=== PATIENT | female | born 1990 | race Caucasian/White ===

== ENCOUNTER 2021-03-12 03:37 | Day surgery (SDC) | payer OTHER ==
[2021-03-12] MEDS ORDERED: HYDROmorphone 1 MG/ML Syringe IVPUSH STA (04:12)
[2021-03-12] MEDS ORDERED: Ondansetron 4 MG/2 ML SDV IVPUSH ONE ×2 (04:12→07:06)
[2021-03-12] MEDS ORDERED: Sodium Chloride 0.9% 1,000 ML IV SCH (04:15)
--- NOTE | 2021-03-12 04:16 | EDM.PDOC ---
ED HPI GENERAL MEDICAL PROBLEM - General Chief Complaint: Gastrointestinal Problem Stated Complaint: stomach pain vomitting sick Time Seen by Provider: 03/12/21 03:56 Source of Information: Reports: Patient, Other (Friend) History Limitations: Reports: No Limitations - History of Present Illness INITIAL COMMENTS - FREE TEXT/NARRATIVE: Ms. Suero is a very pleasant 30-year-old woman who now presents the ED stating that she developed generalized abdominal discomfort around noon yesterday, 03/11/2021. Around 20:00 last night, the pain became prominent in the right lower quadrant, and has progressively become worse. At the same time, she developed nausea, vomiting, and loose bowel movements. She describes the pain as achy, with some shooting. The pain does not radiate. No flank pain. She states that she feels better if she is standing, worse if she is supine. She states that going over bumps in the road en route to the ED were painful. No recent fever. No recent urinary symptoms. No prior similar symptoms. The patient states that she took some TUMS, which did not help. She also took some Pepto-Bismol and acetaminophen, which she vomited. The patient states that she has had vaginal spotting on and off for the past 3 weeks, therefore is unable to say when her LMP was. She last ate around 17:00 last night, but vomited it up. Here in the ED, the patient's initial BP is found to be slightly elevated at 139/100, otherwise, she is hemodynamically stable, afebrile, saturating 90% on room air. She appears to be uncomfortable while semirecumbent on the gurney, although in no acute distress. Prior to yesterday around noon, the patient denies having a recent fever, chills, sore throat, ear pain, nasal or sinus congestion, cough, dyspnea, chest pain, palpitations, nausea, vomiting, constipation, diarrhea, abdominal pain, urinary symptoms, recent weight gain or weight loss, recent bloody bowel movements or black bowel movements, recent joint aches, headaches, or rashes. The patient's PCP is Dr. Maylin Donnelly, at [facility]. Right Lower Abdomen Pain Score (Numeric/FACES): 6 - Related Data Allergies Allergy/AdvReac Type Severity Reaction Status Date / Time codeine Allergy Itching Verified 03/12/21 03:48 Home Meds: Home Meds Desvenlafaxine Succinate [Pristiq] 150 mg PO DAILY 03/12/21 [History] norethindrone ac-eth estradioL [Jesus 1.5 mg-30 Mcg Tablet] 1 tab PO DAILY 03/12/21 [History] Past Medical History Psychiatric History: Reports: Anxiety, Depression - Past Surgical History HEENT Surgical History: Reports: Oral Surgery (dental extractions), Tonsillectomy Social & Family History - Tobacco Use Tobacco Use Status *Q: Current Every Day Tobacco User Years of Tobacco use: 7 Packs/Tins Daily: 0.2 Packs/Tins Daily Comment: Down from 1 ppd Tobacco Use Comment: Started smoking at 23 yrs old - Caffeine Use Caffeine Use: Reports: Coffee - Alcohol Use Alcohol Use History: Yes Alcohol Use Frequency: Socially - Recreational Drug Use Recreational Drug Use: No - Living Situation & Occupation Living situation: Reports: Single, with Significant Other 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 ED EXAM, GI/ABD - Physical Exam Exam: See Below Exam Limited By: No Limitations General Appearance: Alert, WD/WN, Mild Distress (appears uncomfortable) Eyes: Bilateral: Normal Appearance, EOMI Ears: Normal External Exam, Hearing Grossly Normal Nose: Normal Inspection Throat/Mouth: Normal Inspection, Normal Lips, Normal Voice, No Airway Compromise Head: Atraumatic, Normocephalic Neck: Normal Inspection, Full Range of Motion Respiratory/Chest: No Respiratory Distress, Lungs Clear, Normal Breath Sounds, No Accessory Muscle Use Cardiovascular: Normal Peripheral Pulses, Regular Rate, Rhythm, No Gallop, No JVD, No Murmur, No Rub GI/Abdominal Exam: Soft, No Organomegaly, No Distention, No Abnormal Bruit, No Mass, Tender (exquisite, to the right lower quadrant, with Rovsing sign present to palpation of the left abdomen. Obturator sign present. Psoas sign absent. Heel drop sign present.), Abnormal Bowel Sounds (rare/diminished). No: Rebound Back Exam: Normal Inspection, Full Range of Motion, NT Extremities: Normal Inspection, Normal Range of Motion, Normal Capillary Refill Neurological: Alert, Oriented, Normal Cognition, No Motor/Sensory Deficits Psychiatric: Normal Affect Skin Exam: Warm, Dry, Intact, Normal Color, No Rash Course - Vital Signs Last Recorded V/S: Last Vital Signs Temp 36.0 C L 03/12/21 03:43 Pulse 81 03/12/21 03:43 Resp 16 03/12/21 03:43 BP 139/100 H 03/12/21 03:43 Pulse Ox 98 03/12/21 03:43 - Orders/Labs/Meds Orders: Active Orders 24 hr Category Date Time Status Abdomen Pelvis w Cont [CT] Stat Exams 03/12/21 04:12 Taken CORONAVIRUS COVID-19 ALISSA [MOLEC] Stat Lab 03/12/21 07:33 Ordered Ertapenem [INVanz] 1 gm Med 03/12/21 07:09 Active Sodium Chloride 0.9% [Normal Saline] 50 ml IV ONETIME Sodium Chloride 0.9% [Normal Saline] 1,000 ml Med 03/12/21 04:15 Active IV ASDIRECTED Sodium Chloride 0.9% [Saline Flush] Med 03/12/21 06:30 Active 10 ml FLUSH BOLUS Medication Orders Sodium Chloride (Normal Saline) 1,000 mls @ 150 mls/hr IV ASDIRECTED [facility] Last Admin: 03/12/21 04:21 Dose: 150 mls/hr Documented by: CRISTY Ertapenem 1 gm/ Sodium (Chloride) 50 mls @ 100 mls/hr IV ONETIME STA Stop: 03/12/21 07:38 Last Admin: 03/12/21 07:27 Dose: 100 mls/hr Documented by: ROBERT Sodium Chloride (Sodium Chloride 0.9% 10 Ml Syringe) 10 ml FLUSH BOLUS [facility] Last Admin: 03/12/21 07:03 Dose: 10 ml Documented by: HONEY Labs: Laboratory Tests 03/12/21 03/12/21 03/12/21 Range/Units 04:17 04:17 05:32 WBC 12.55 H (3.98-10.04) K/mm3 RBC 5.15 (3.98-5.22) M/mm3 Hgb 15.4 (11.2-15.7) gm/dl Hct 46.5 H (34.1-44.9) % MCV 90.3 (79.4-94.8) fl MCH 29.9 (25.6-32.2) pg MCHC 33.1 (32.2-35.5) g/dl RDW Std Deviation 46.4 H (36.4-46.3) fL Plt Count 213 (182-369) K/mm3 MPV 9.7 (9.4-12.3) fl Neutrophils % (Manual) 78 H (40-60) % Band Neutrophils % 0 (0-10) % Lymphocytes % (Manual) 14 L (20-40) % Atypical Lymphs % 0 % Monocytes % (Manual) 8 (2-10) % Eosinophils % (Manual) 0 L (0.7-5.8) % Basophils % (Manual) 0 L (0.1-1.2) Platelet Estimate Adequate RBC Morph Comment Normal Sodium 140 (136-145) mEq/L Potassium 4.2 (3.5-5.1) mEq/L Chloride 101 (98-107) mEq/L Carbon Dioxide 28 (21-32) mEq/L Anion Gap 15.2 H (5-15) BUN 12 (7-18) mg/dL Creatinine 1.1 H (0.55-1.02) mg/dL Est Cr Clr Drug Dosing TNP Estimated GFR (MDRD) 59 (>60) mL/min BUN/Creatinine Ratio 10.9 L (14-18) Glucose 115 H (70-99) mg/dL Calcium 9.5 (8.5-10.1) mg/dL Magnesium 1.9 (1.8-2.4) mg/dL Total Bilirubin 0.7 (0.2-1.0) mg/dL AST 18 (15-37) U/L ALT 19 (14-59) U/L Alkaline Phosphatase 40 L (46-116) U/L Total Protein 7.8 (6.4-8.2) g/dl Albumin 4.2 (3.4-5.0) g/dl Globulin 3.6 gm/dL Albumin/Globulin Ratio 1.2 (1-2) Urine Color Yellow (Yellow) Urine Appearance Slt cloudy H (Clear) Urine pH 7.0 (5.0-8.0) Ur Specific [place] 1.020 (1.005-1.030) Urine Protein 1+ H (Negative) Urine Glucose (UA) Negative (Negative) Urine Ketones 2+ H (Negative) Urine Occult Blood 2+ H (Negative) Urine Nitrite Negative (Negative) Urine Bilirubin 1+ H (Negative) Urine Urobilinogen 0.2 (0.2-1.0) Ur Leukocyte Esterase Negative (Negative) Urine RBC 5-10 H (0-5) /hpf Urine WBC 0-5 (0-5) /hpf Ur Squamous Epith Cells 0-5 (0-5) /hpf Urine Bacteria Moderate H (FEW) /hpf Urine Mucus Moderate H (FEW) /hpf Urine HCG, Qual (NEGATIVE) 03/12/21 Range/Units 05:32 WBC (3.98-10.04) K/mm3 RBC (3.98-5.22) M/mm3 Hgb (11.2-15.7) gm/dl Hct (34.1-44.9) % MCV (79.4-94.8) fl MCH (25.6-32.2) pg MCHC (32.2-35.5) g/dl RDW Std Deviation (36.4-46.3) fL Plt Count (182-369) K/mm3 MPV (9.4-12.3) fl Neutrophils % (Manual) (40-60) % Band Neutrophils % (0-10) % Lymphocytes % (Manual) (20-40) % Atypical Lymphs % % Monocytes % (Manual) (2-10) % Eosinophils % (Manual) (0.7-5.8) % Basophils % (Manual) (0.1-1.2) Platelet Estimate RBC Morph Comment Sodium (136-145) mEq/L Potassium (3.5-5.1) mEq/L Chloride (98-107) mEq/L Carbon Dioxide (21-32) mEq/L Anion Gap (5-15) BUN (7-18) mg/dL Creatinine (0.55-1.02) mg/dL Est Cr Clr Drug Dosing Estimated GFR (MDRD) (>60) mL/min BUN/Creatinine Ratio (14-18) Glucose (70-99) mg/dL Calcium (8.5-10.1) mg/dL Magnesium (1.8-2.4) mg/dL Total Bilirubin (0.2-1.0) mg/dL AST (15-37) U/L ALT (14-59) U/L Alkaline Phosphatase (46-116) U/L Total Protein (6.4-8.2) g/dl Albumin (3.4-5.0) g/dl Globulin gm/dL Albumin/Globulin Ratio (1-2) Urine Color (Yellow) Urine Appearance (Clear) Urine pH (5.0-8.0) Ur Specific [place] (1.005-1.030) Urine Protein (Negative) Urine Glucose (UA) (Negative) Urine Ketones (Negative) Urine Occult Blood (Negative) Urine Nitrite (Negative) Urine Bilirubin (Negative) Urine Urobilinogen (0.2-1.0) Ur Leukocyte Esterase (Negative) Urine RBC (0-5) /hpf Urine WBC (0-5) /hpf Ur Squamous Epith Cells (0-5) /hpf Urine Bacteria (FEW) /hpf Urine Mucus (FEW) /hpf Urine HCG, Qual Negative (NEGATIVE) Meds: Medications Generic Name Dose Route Start Last Admin Trade Name Freq PRN Reason Stop Dose Admin Sodium Chloride 1,000 mls @ 150 mls/hr 03/12/21 04:15 03/12/21 04:21 Normal Saline IV 150 mls/hr ASDIRECTED NAOMIE Administration Ertapenem 1 gm/ Sodium 50 mls @ 100 mls/hr 03/12/21 07:09 03/12/21 07:27 Chloride IV 03/12/21 07:38 100 mls/hr ONETIME STA Administration Sodium Chloride 10 ml 03/12/21 06:30 03/12/21 07:03 Sodium Chloride 0.9% 10 Ml Syringe FLUSH 10 ml BOLUS NAOMIE Administration Discontinued Medications Generic Name Dose Route Start Last Admin Trade Name Marilin PRN Reason Stop Dose Admin Hydromorphone HCl 1 mg 03/12/21 04:12 03/12/21 04:22 Hydromorphone 1 Mg/Ml Syringe IVPUSH 03/12/21 04:13 1 mg ONETIME STA Administration Hydromorphone HCl 1 mg 03/12/21 07:06 03/12/21 07:26 Hydromorphone 1 Mg/Ml Syringe IVPUSH 03/12/21 07:07 1 mg ONETIME ONE Administration Iopamidol 100 ml 03/12/21 06:17 03/12/21 07:03 Iopamidol 612 Mg/Ml 100 Ml Bottle IVPUSH 03/12/21 06:18 100 ml ONETIME ONE Administration Ondansetron HCl 4 mg 03/12/21 04:12 03/12/21 04:21 Ondansetron 4 Mg/2 Ml Sdv IVPUSH 03/12/21 04:13 4 mg ONETIME ONE Administration Ondansetron HCl 4 mg 03/12/21 07:06 03/12/21 07:25 Ondansetron 4 Mg/2 Ml Sdv IVPUSH 03/12/21 07:07 4 mg ONETIME ONE Administration - Re-Assessments/Exams Free Text/Narrative Re-Assessment/Exam: 03/12/21 04:14 As above, the patient developed generalized abdominal discomfort around noon yesterday, then developed progressively worsening right lower quadrant pain with nausea, vomiting, and loose bowel movements around 20:00 last evening. On examination, she has diminished bowel sounds and exquisite tenderness to the right lower quadrant, along with Rovsing sign. Obturator sign and heel drop sign are present, while a psoas sign is absent. While her her presentation could be due to a ruptured ovarian cyst, it is most consistent with acute appendicitis, therefore I have ordered a work-up that includes several blood tests, a urinalysis, a urine test, and a CT of the abdomen and pelvis with oral and IV contrast. In the meantime, the patient will be given IV Dilaudid, IV Zofran, and IV fluid. 03/12/21 07:10 The patient's CBC is remarkable for leukocytosis of 12.55, but with 0% bandemia. Her Hct is slightly elevated at 46.5, with a Hgb normal at 15.4, and the remain irma of her CBC being unremarkable. Her CMP is remarkable for an anion gap slightly elevated at 15.2, but with a bicarb normal at 28. She has slight hyperglycemia of 115, with the remainder of her CMP being unremarkable. Her magnesium level is within normal limits at 1.9. Her urinalysis is remarkable for 2+ occult blood with 5-10 RBCs, leukocyte esterase negative with 0-5 WBCs, nitrate negative with moderate bacteria, and 0- 5 squamous epithelial cells. Her urine test was negative. Preliminary review of the CT of the abdomen and pelvis appears to demonstrate periappendiceal inflammation, with no free air. Formal read per the Radiologist pending. Based on the above, I have ordered 1 g of IV Invanz. 03/12/21 07:28 CT of the abdomen and pelvis with oral and IV contrast is read by [facility] as: 1. Contrast noted within the distal esophagus consistent with gastroesophageal reflux. 2. Cholelithiasis without ancillary signs to suggest acute cholecystitis. 3. Hyperemic distended appendix measuring 9.6 mm in diameter with adjacent inflammatory fat stranding consistent with acute appendicitis. 4. No evidence of appendiceal rupture or abscess. Case discussed with Dr. Crespo at 07:26. She would like us to call the OR team in, with the intention of taking the patient to the operating room as soon as possible. She will come to the ED to evaluate the patient. Departure - Departure Time of Disposition: 07:29 Disposition: DC/Tfer to Critical Access [facility] Condition: Good Clinical Impression: Acute appendicitis - Discharge Information *PRESCRIPTION DRUG MONITORING PROGRAM REVIEWED*: Not Applicable *COPY OF PRESCRIPTION DRUG MONITORING REPORT IN PATIENT WILLIAM: Not Applicable Referrals: Maylin Donnelly MD [Primary Care Provider] - Forms: ED Department Discharge Sepsis Event Note (ED) - Evaluation Sepsis Screening Result: No Definite Risk - Focused Exam Vital Signs: Vital Signs Temp Pulse Resp BP Pulse Ox 03/12/21 03:43 36.0 C L 81 16 139/100 H 98 - My Orders Last 24 Hours: My Active Orders 03/12/21 04:12 Abdomen Pelvis w Cont [CT] Stat 03/12/21 04:15 Sodium Chloride 0.9% [Normal Saline] 1,000 ml IV ASDIRECTED 03/12/21 06:30 Sodium Chloride 0.9% [Saline Flush] 10 ml FLUSH BOLUS 03/12/21 07:09 Ertapenem [INVanz] 1 gm Sodium Chloride 0.9% [Normal Saline] 50 ml IV ONETIME 03/12/21 07:33 CORONAVIRUS COVID-19 ALISSA [MOLEC] Stat - Assessment/Plan Last 24 Hours: My Active Orders 03/12/21 04:12 Abdomen Pelvis w Cont [CT] Stat 03/12/21 04:15 Sodium Chloride 0.9% [Normal Saline] 1,000 ml IV ASDIRECTED 03/12/21 06:30 Sodium Chloride 0.9% [Saline Flush] 10 ml FLUSH BOLUS 03/12/21 07:09 Ertapenem [INVanz] 1 gm Sodium Chloride 0.9% [Normal Saline] 50 ml IV ONETIME 03/12/21 07:33 CORONAVIRUS COVID-19 ALISSA [MOLEC] Stat
[2021-03-12] MEDS ORDERED: Iopamidol 612 MG/ML 100 ML Bottle IVPUSH ONE (06:17)
[2021-03-12] MEDS ORDERED: Sodium Chloride 0.9% 10 ML Syringe FLUSH SCH (06:30)
[2021-03-12] MEDS ORDERED: HYDROmorphone 1 MG/ML Syringe IVPUSH ONE (07:06)
[2021-03-12] MEDS ORDERED: Ertapenem 1 GM in Sodium Chloride 0.9% 50 ML IV STA (07:09)
--- NOTE | 2021-03-12 08:15 | PCM.PREANE ---
Preanesthetic Assessment - Procedure Proposed Procedure: laparoscopic appendectomy - Anesthesia/Transfusion/Family Hx Anesthesia History: Prior Anesthesia Reaction (bleeding tonsils to rapid response) Family History of Anesthesia Reaction: No Transfusion History: No Prior Transfusion(s) - Review of Systems General: Fatigue, Malaise Pulmonary: No Symptoms Cardiovascular: No Symptoms Gastrointestinal: Abdominal Pain, Nausea Neurological: No Symptoms Other: Reports: None - Physical Assessment NPO Status Date: 03/11/21 NPO Status Time: 17:00 Vital Signs: Last Vital Signs Temp 36.0 C L 03/12/21 03:43 Pulse 81 03/12/21 03:43 Resp 16 03/12/21 03:43 BP 139/100 H 03/12/21 03:43 Pulse Ox 98 03/12/21 03:43 Weight: 85.502 kg ASA Class: 2 Mental Status: Alert & Oriented x3 Airway Class: Mallampati = 1 Dentition: Reports: Normal Dentition Thyro-Mental Finger Breadths: 3 Mouth Opening Finger Breadths: 3 ROM/Head Extension: Full Lungs: Clear to Auscultation, Normal Respiratory Effort Cardiovascular: Regular Rate, Regular Rhythm - Lab Values: Laboratory Last Values WBC 12.55 K/mm3 (3.98-10.04) H 03/12/21 04:17 RBC 5.15 M/mm3 (3.98-5.22) 03/12/21 04:17 Hgb 15.4 gm/dl (11.2-15.7) 03/12/21 04:17 Hct 46.5 % (34.1-44.9) H 03/12/21 04:17 MCV 90.3 fl (79.4-94.8) 03/12/21 04:17 MCH 29.9 pg (25.6-32.2) 03/12/21 04:17 MCHC 33.1 g/dl (32.2-35.5) 03/12/21 04:17 RDW Std Deviation 46.4 fL (36.4-46.3) H 03/12/21 04:17 Plt Count 213 K/mm3 (182-369) 03/12/21 04:17 MPV 9.7 fl (9.4-12.3) 03/12/21 04:17 Neutrophils % (Manual) 78 % (40-60) H 03/12/21 04:17 Band Neutrophils % 0 % (0-10) 03/12/21 04:17 Lymphocytes % (Manual) 14 % (20-40) L 03/12/21 04:17 Atypical Lymphs % 0 % 03/12/21 04:17 Monocytes % (Manual) 8 % (2-10) 03/12/21 04:17 Eosinophils % (Manual) 0 % (0.7-5.8) L 03/12/21 04:17 Basophils % (Manual) 0 (0.1-1.2) L 03/12/21 04:17 Platelet Estimate Adequate 03/12/21 04:17 RBC Morph Comment Normal 03/12/21 04:17 Sodium 140 mEq/L (136-145) 03/12/21 04:17 Potassium 4.2 mEq/L (3.5-5.1) 03/12/21 04:17 Chloride 101 mEq/L (98-107) 03/12/21 04:17 Carbon Dioxide 28 mEq/L (21-32) 03/12/21 04:17 Anion Gap 15.2 (5-15) H 03/12/21 04:17 BUN 12 mg/dL (7-18) 03/12/21 04:17 Creatinine 1.1 mg/dL (0.55-1.02) H 03/12/21 04:17 Est Cr Clr Drug Dosing TNP 03/12/21 04:17 Estimated GFR (MDRD) 59 mL/min (>60) 03/12/21 04:17 BUN/Creatinine Ratio 10.9 (14-18) L 03/12/21 04:17 Glucose 115 mg/dL (70-99) H 03/12/21 04:17 Calcium 9.5 mg/dL (8.5-10.1) 03/12/21 04:17 Magnesium 1.9 mg/dL (1.8-2.4) 03/12/21 04:17 Total Bilirubin 0.7 mg/dL (0.2-1.0) 03/12/21 04:17 AST 18 U/L (15-37) 03/12/21 04:17 ALT 19 U/L (14-59) 03/12/21 04:17 Alkaline Phosphatase 40 U/L (46-116) L 03/12/21 04:17 Total Protein 7.8 g/dl (6.4-8.2) 03/12/21 04:17 Albumin 4.2 g/dl (3.4-5.0) 03/12/21 04:17 Globulin 3.6 gm/dL 03/12/21 04:17 Albumin/Globulin Ratio 1.2 (1-2) 03/12/21 04:17 Urine Color Yellow (Yellow) 03/12/21 05:32 Urine Appearance Slt cloudy (Clear) H 03/12/21 05:32 Urine pH 7.0 (5.0-8.0) 03/12/21 05:32 Ur Specific [place] 1.020 (1.005-1.030) 03/12/21 05:32 Urine Protein 1+ (Negative) H 03/12/21 05:32 Urine Glucose (UA) Negative (Negative) 03/12/21 05:32 Urine Ketones 2+ (Negative) H 03/12/21 05:32 Urine Occult Blood 2+ (Negative) H 03/12/21 05:32 Urine Nitrite Negative (Negative) 03/12/21 05:32 Urine Bilirubin 1+ (Negative) H 03/12/21 05:32 Urine Urobilinogen 0.2 (0.2-1.0) 03/12/21 05:32 Ur Leukocyte Esterase Negative (Negative) 03/12/21 05:32 Urine RBC 5-10 /hpf (0-5) H 03/12/21 05:32 Urine WBC 0-5 /hpf (0-5) 03/12/21 05:32 Ur Squamous Epith Cells 0-5 /hpf (0-5) 03/12/21 05:32 Urine Bacteria Moderate /hpf (FEW) H 03/12/21 05:32 Urine Mucus Moderate /hpf (FEW) H 03/12/21 05:32 Urine HCG, Qual Negative (NEGATIVE) 03/12/21 05:32 - Allergies Allergies/Adverse Reactions: Allergies Allergy/AdvReac Type Severity Reaction Status Date / Time codeine Allergy Itching Verified 03/12/21 03:48 - Anesthesia Plan Pre-Op Medication Ordered: None - Acknowledgements Anesthesia Type Planned: General Anesthesia Pt an Appropriate Candidate for the Planned Anesthesia: Yes Alternatives and Risks of Anesthesia Discussed w Pt/Guardian: Yes Pt/Guardian Understands and Agrees with Anesthesia Plan: Yes PreAnesthesia Questionnaire Gastrointestinal History: Reports: GERD Psychiatric History: Reports: Anxiety, Depression - Past Surgical History HEENT Surgical History: Reports: Oral Surgery (dental extractions), Tonsillectomy - SUBSTANCE USE Tobacco Use Status *Q: Current Every Day Tobacco User Tobacco Use Within Last Twelve Months: Cigarettes Second Hand Smoke Exposure: No Days Per Week of Alcohol Use: 1 Number of Drinks Per Day: 1 Total Drinks Per Week: 1 Recreational Drug Use History: No - HOME MEDS Home Medications: Home Meds Desvenlafaxine Succinate [Pristiq] 150 mg PO DAILY 03/12/21 [History] norethindrone ac-eth estradioL [Jesus 1.5 mg-30 Mcg Tablet] 1 tab PO DAILY 03/12/21 [History] - CURRENT (IN HOUSE) MEDS Current Meds: Current Medications Sodium Chloride (Normal Saline) 1,000 mls @ 150 mls/hr IV ASDIRECTED [facility] Last Admin: 03/12/21 04:21 Dose: 150 mls/hr Documented by: Sodium Chloride (Sodium Chloride 0.9% 10 Ml Syringe) 10 ml FLUSH BOLUS [facility] Last Admin: 03/12/21 07:03 Dose: 10 ml Documented by: Discontinued Medications Bupivacaine HCl/Epinephrine Bitart (Bupivacaine 0.5%/Epinephrine 1:200,000 50 Ml Mdv) Confirm Administered Dose 50 ml .ROUTE .STK-MED ONE Stop: 03/12/21 08:02 Hydromorphone HCl (Hydromorphone 1 Mg/Ml Syringe) 1 mg IVPUSH ONETIME STA Stop: 03/12/21 04:13 Last Admin: 03/12/21 04:22 Dose: 1 mg Documented by: Hydromorphone HCl (Hydromorphone 1 Mg/Ml Syringe) 1 mg IVPUSH ONETIME ONE Stop: 03/12/21 07:07 Last Admin: 03/12/21 07:26 Dose: 1 mg Documented by: Ertapenem 1 gm/ Sodium (Chloride) 50 mls @ 100 mls/hr IV ONETIME STA Stop: 03/12/21 07:38 Last Admin: 03/12/21 07:27 Dose: 100 mls/hr Documented by: Iopamidol (Iopamidol 612 Mg/Ml 100 Ml Bottle) 100 ml IVPUSH ONETIME ONE Stop: 03/12/21 06:18 Last Admin: 03/12/21 07:03 Dose: 100 ml Documented by: Lidocaine/Epinephrine (Lidocaine 1% With Epinephrine 1:100,000 10 Ml Mdv) Confirm Administered Dose 40 ml .ROUTE .STK-MED ONE Stop: 03/12/21 08:02 Ondansetron HCl (Ondansetron 4 Mg/2 Ml Sdv) 4 mg IVPUSH ONETIME ONE Stop: 03/12/21 04:13 Last Admin: 03/12/21 04:21 Dose: 4 mg Documented by: Ondansetron HCl (Ondansetron 4 Mg/2 Ml Sdv) 4 mg IVPUSH ONETIME ONE Stop: 03/12/21 07:07 Last Admin: 03/12/21 07:25 Dose: 4 mg Documented by:
[2021-03-12] MEDS ORDERED: Rocuronium 50 MG/5 ML Vial ONE (08:30)
[2021-03-12] MEDS ORDERED: Ondansetron 4 MG/2 ML SDV ONE (08:30)
[2021-03-12] MEDS ORDERED: Lidocaine 1% 4 ML ONE (08:30)
[2021-03-12] MEDS ORDERED: fentaNYL 250 MCG/5 ML SDV ONE (08:30)
[2021-03-12] MEDS ORDERED: Midazolam 1 MG/ML 2 ML SDV ONE (08:30)
[2021-03-12] MEDS ORDERED: Propofol 200 MG/20 ML SDV ONE (08:30)
[2021-03-12] MEDS ORDERED: Lactated Ringers 1,000 ML ONE ×2 (08:40)
--- NOTE | 2021-03-12 08:55 | PCM.HP.2 ---
H&P History of Present Illness - General Date of Service: 03/12/21 Admit Problem/Dx: Admission Diagnosis/Problem Admission Diagnosis/Problem Acute appendicitis Source of Information: Patient, Provider History Limitations: Reports: No Limitations - History of Present Illness Initial Comments - Free Text/Narative: The patient is a 30 y/o lady who presents with a 2 day history of abdominal pain. She started experiencing generalized abdominal pain yesterday, and it localized to the RLQ. After settling in the RLQ, she started to have nausea and vomiting accompanied by diarrhea. She denies any hematochezia or melena. She had subjective fever/chills after the onset of the RLQ pain. Upon arrival to the ED, she had lab work and CT abdomen/pelvis completed. This was significant for WBC 12.55K and left shift, and findings of dilated appendix with appendiceal fat stranding on the CT scan. Right Lower Abdomen Pain Score (Numeric/FACES): 6 - Related Data Allergies/Adverse Reactions: Allergies Allergy/AdvReac Type Severity Reaction Status Date / Time codeine Allergy Itching Verified 03/12/21 03:48 Home Medications: Home Meds Desvenlafaxine Succinate [Pristiq] 150 mg PO DAILY 03/12/21 [History] norethindrone ac-eth estradioL [Jesus 1.5 mg-30 Mcg Tablet] 1 tab PO DAILY 03/12/21 [History] Past Medical History Gastrointestinal History: Reports: GERD Psychiatric History: Reports: Anxiety, Depression - Past Surgical History HEENT Surgical History: Reports: Oral Surgery (dental extractions with bleeding complication), Tonsillectomy (with bleeding complication) Social & Family History - Family History Cardiac: Reports: Hypertension GI: Reports: Inflammatory Bowel Disease (ulcerative colitis) Neurological: Reports: CVA Psychiatric: Reports: Anxiety Oncologic: Reports: Breast, Skin - Tobacco Use Tobacco Use Status *Q: Current Every Day Tobacco User Years of Tobacco use: 7 Packs/Tins Daily: 0.2 Tobacco Use Comment: Started smoking at 23 yrs old Second Hand Smoke Exposure: No - Caffeine Use Caffeine Use: Reports: Coffee - Alcohol Use Days Per Week of Alcohol Use: 1 Number of Drinks Per Day: 1 Total Drinks Per Week: 1 - Recreational Drug Use Recreational Drug Use: No - Living Situation & Occupation Living situation: Reports: Single, with Significant Other 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) H&P Review of Systems - Review of Systems: Review Of Systems: See Below General: Reports: Fever (subjective), Chills HEENT: Reports: Sinus Congestion (after vomiting), Other (loss of smell since COVID 9mo ago) Pulmonary: Reports: No Symptoms Cardiovascular: Reports: No Symptoms Gastrointestinal: Reports: Abdominal Pain, Diarrhea, Nausea, Vomiting Genitourinary: Reports: No Symptoms Musculoskeletal: Reports: No Symptoms Skin: Reports: No Symptoms Hematologic/Lymphatic: Reports: Other (bleeding after surgery) Exam - Exam Exam: See Below - Vital Signs Vital Signs: Last Vital Signs Temp 36.0 C L 03/12/21 03:43 Pulse 81 03/12/21 03:43 Resp 16 03/12/21 03:43 BP 139/100 H 03/12/21 03:43 Pulse Ox 98 03/12/21 03:43 Weight: 85.502 kg - Exam Quality Assessment: No: Supplemental Oxygen General: Alert, Oriented HEENT: Conjunctiva Clear, EOMI Neck: Supple Lungs: Normal Respiratory Effort Cardiovascular: Regular Rate, Regular Rhythm GI/Abdominal Exam: Soft, No Distention, Tender (in RLQ). No: Rebound Extremities: Normal Inspection, No Pedal Edema Peripheral Pulses: 2+: Dorsalis Pedis (L), Dorsalis Pedis (R) Skin: Warm, Dry, Intact Neurological: Cranial Nerves Intact Neuro Extensive - Mental Status: Oriented x3, Normal Mood/Affect - Patient Data Lab Results Last 24 hrs: Laboratory Results - last 24 hr 03/12/21 03/12/21 03/12/21 Range/Units 04:17 04:17 05:32 WBC 12.55 H (3.98-10.04) K/mm3 RBC 5.15 (3.98-5.22) M/mm3 Hgb 15.4 (11.2-15.7) gm/dl Hct 46.5 H (34.1-44.9) % MCV 90.3 (79.4-94.8) fl MCH 29.9 (25.6-32.2) pg MCHC 33.1 (32.2-35.5) g/dl RDW Std Deviation 46.4 H (36.4-46.3) fL Plt Count 213 (182-369) K/mm3 MPV 9.7 (9.4-12.3) fl Neutrophils % (Manual) 78 H (40-60) % Band Neutrophils % 0 (0-10) % Lymphocytes % (Manual) 14 L (20-40) % Atypical Lymphs % 0 % Monocytes % (Manual) 8 (2-10) % Eosinophils % (Manual) 0 L (0.7-5.8) % Basophils % (Manual) 0 L (0.1-1.2) Platelet Estimate Adequate RBC Morph Comment Normal Sodium 140 (136-145) mEq/L Potassium 4.2 (3.5-5.1) mEq/L Chloride 101 (98-107) mEq/L Carbon Dioxide 28 (21-32) mEq/L Anion Gap 15.2 H (5-15) BUN 12 (7-18) mg/dL Creatinine 1.1 H (0.55-1.02) mg/dL Est Cr Clr Drug Dosing TNP Estimated GFR (MDRD) 59 (>60) mL/min BUN/Creatinine Ratio 10.9 L (14-18) Glucose 115 H (70-99) mg/dL Calcium 9.5 (8.5-10.1) mg/dL Magnesium 1.9 (1.8-2.4) mg/dL Total Bilirubin 0.7 (0.2-1.0) mg/dL AST 18 (15-37) U/L ALT 19 (14-59) U/L Alkaline Phosphatase 40 L (46-116) U/L Total Protein 7.8 (6.4-8.2) g/dl Albumin 4.2 (3.4-5.0) g/dl Globulin 3.6 gm/dL Albumin/Globulin Ratio 1.2 (1-2) Urine Color Yellow (Yellow) Urine Appearance Slt cloudy H (Clear) Urine pH 7.0 (5.0-8.0) Ur Specific [place] 1.020 (1.005-1.030) Urine Protein 1+ H (Negative) Urine Glucose (UA) Negative (Negative) Urine Ketones 2+ H (Negative) Urine Occult Blood 2+ H (Negative) Urine Nitrite Negative (Negative) Urine Bilirubin 1+ H (Negative) Urine Urobilinogen 0.2 (0.2-1.0) Ur Leukocyte Esterase Negative (Negative) Urine RBC 5-10 H (0-5) /hpf Urine WBC 0-5 (0-5) /hpf Ur Squamous Epith Cells 0-5 (0-5) /hpf Urine Bacteria Moderate H (FEW) /hpf Urine Mucus Moderate H (FEW) /hpf Urine HCG, Qual (NEGATIVE) SARS-CoV-2 RNA (ALISSA) (NEGATIVE) 03/12/21 03/12/21 Range/Units 05:32 07:30 WBC (3.98-10.04) K/mm3 RBC (3.98-5.22) M/mm3 Hgb (11.2-15.7) gm/dl Hct (34.1-44.9) % MCV (79.4-94.8) fl MCH (25.6-32.2) pg MCHC (32.2-35.5) g/dl RDW Std Deviation (36.4-46.3) fL Plt Count (182-369) K/mm3 MPV (9.4-12.3) fl Neutrophils % (Manual) (40-60) % Band Neutrophils % (0-10) % Lymphocytes % (Manual) (20-40) % Atypical Lymphs % % Monocytes % (Manual) (2-10) % Eosinophils % (Manual) (0.7-5.8) % Basophils % (Manual) (0.1-1.2) Platelet Estimate RBC Morph Comment Sodium (136-145) mEq/L Potassium (3.5-5.1) mEq/L Chloride (98-107) mEq/L Carbon Dioxide (21-32) mEq/L Anion Gap (5-15) BUN (7-18) mg/dL Creatinine (0.55-1.02) mg/dL Est Cr Clr Drug Dosing Estimated GFR (MDRD) (>60) mL/min BUN/Creatinine Ratio (14-18) Glucose (70-99) mg/dL Calcium (8.5-10.1) mg/dL Magnesium (1.8-2.4) mg/dL Total Bilirubin (0.2-1.0) mg/dL AST (15-37) U/L ALT (14-59) U/L Alkaline Phosphatase (46-116) U/L Total Protein (6.4-8.2) g/dl Albumin (3.4-5.0) g/dl Globulin gm/dL Albumin/Globulin Ratio (1-2) Urine Color (Yellow) Urine Appearance (Clear) Urine pH (5.0-8.0) Ur Specific [place] (1.005-1.030) Urine Protein (Negative) Urine Glucose (UA) (Negative) Urine Ketones (Negative) Urine Occult Blood (Negative) Urine Nitrite (Negative) Urine Bilirubin (Negative) Urine Urobilinogen (0.2-1.0) Ur Leukocyte Esterase (Negative) Urine RBC (0-5) /hpf Urine WBC (0-5) /hpf Ur Squamous Epith Cells (0-5) /hpf Urine Bacteria (FEW) /hpf Urine Mucus (FEW) /hpf Urine HCG, Qual Negative (NEGATIVE) SARS-CoV-2 RNA (ALISSA) Negative (NEGATIVE) Result Diagrams: 03/12/21 04:17 03/12/21 04:17 Sepsis Event Note - Evaluation Sepsis Screening Result: No Definite Risk - Focused Exam Vital Signs: Vital Signs Temp Pulse Resp BP Pulse Ox 03/12/21 03:43 36.0 C L 81 16 139/100 H 98 *Q Meaningful Use (ADM) - VTE Risk Assess *Q Each Risk Factor Represents 1 Point: Minor Surgery Planned, Obesity ( BMI > 25 kg/m2) Total Score 1 Point Risk Factors: 2 - Problem List (1) Acute appendicitis SNOMED Code(s): 72045986 ICD Code: K35.80 - UNSPECIFIED ACUTE APPENDICITIS Status: Acute Current Visit: Yes Problem List Initiated/Reviewed/Updated: Yes Orders Last 24hrs: Active Orders 24 hr Category Date Time Status Patient Status [ADT] Routine ADT 03/12/21 07:34 Active Abdomen Pelvis w Cont [CT] Stat Exams 03/12/21 04:12 Taken Sodium Chloride 0.9% [Normal Saline] 1,000 ml Med 03/12/21 04:15 Active IV ASDIRECTED Sodium Chloride 0.9% [Saline Flush] Med 03/12/21 06:30 Active 10 ml FLUSH BOLUS Schedule Procedure [COMM] Stat Oth 03/12/21 07:34 Ordered Medication Orders Sodium Chloride (Normal Saline) 1,000 mls @ 150 mls/hr IV ASDIRECTED NAOMIE Last Admin: 03/12/21 04:21 Dose: 150 mls/hr Documented by: CRISTY Sodium Chloride (Sodium Chloride 0.9% 10 Ml Syringe) 10 ml FLUSH BOLUS NAOMIE Last Admin: 03/12/21 07:03 Dose: 10 ml Documented by: HONEY Assessment/Plan Comment:: 30 y/o lady with acute appendicitis - plan for laparoscopic appendectomy, possible open. Discussed risks of bleeding, infection, and intra-abdominal injury. Also discussed possible need for blood transfusion because of her bleeding history. Her written consent was obtained. - NPO - IVF resuscitation - IV abx per ED - will assess intraoperative findings for need of inpatient stay Kira Reyez MD General surgery - Mortality Measure Prognosis:: Good
[2021-03-12] MEDS ORDERED: Dexamethasone 4 MG/ML 5 ML MDV ONE (09:02)
[2021-03-12] MEDS: Lidocaine 1% with EPINEPHrine 1:100,000 10 ML MDV ONE ×2 (09:14→09:32)
[2021-03-12] MEDS: Bupivacaine 0.5%/EPINEPHrine 1:200,000 50 ML MDV ONE ×2 (09:14→09:32)
[2021-03-12] MEDS ORDERED: Ketorolac 30 MG/ML SDV ONE (09:30)
[2021-03-12] MEDS ORDERED: fentaNYL 100 MCG/2 ML SDV ONE (09:32)
--- NOTE | 2021-03-12 09:51 | PCM.OPNOTE ---
- General Post-Op/Procedure Note Date of Surgery/Procedure: 03/12/21 Operative Procedure(s): Laparoscopic appendectomy Findings: acute appendicitis, not perforated Pre Op Diagnosis: acute appendicitis Post-Op Diagnosis: same Anesthesia Technique: General ET Tube, Local Primary Surgeon: Kira Reyez Anesthesia Provider: Aleksandar Casas Pathology: appendix Fluid Replacement, Intraop: 1,800 Output, Urine Amount: 0 EBL in mLs: 5 Complications: none apparent Condition: Good
--- NOTE | 2021-03-12 09:56 | PCM.PRNOTE ---
- Free Text/Narrative Note: Operative Report Date of surgery: March 12, 2021 Preoperative diagnosis: acute appendicitis. Postoperative diagnosis: same Procedure performed: laparoscopic appendectomy Surgeon: Dr. Kira Reyez Anesthesia: General Search Engine Opt[employer] Consultant: Aleksandar Casas CRNA Estimated blood loss: 5 mL IV fluids: 1800 mL Urine output: 0 Drains and lines: None Findings: Acute appendicitis, not perforated Pathology: Appendix Indications for procedure: The patient is a 30-year-old lady who presented to the emergency department with acute onset of right lower quadrant abdominal pain. She had evaluation no significant for acute appendicitis. She was consented for laparoscopic appendectomy, possible open after discussion of risks including bleeding, possible intra-abdominal injury, abscess formation, and conversion to open. Her written consent was obtained. Description of procedure: The patient was taken back to the operating room and placed in supine position on the operating table. SCD boots were in place and functional prior to the start of the procedure. Preoperative antibiotics were administered in the emergency department. The patient had successful induction of general anesthesia and was intubated without difficulty. Pt was then prepped and draped in standard surgical fashion and a timeout was performed. We began by making a 15 mm incision in the infraumbilical skin and deepened down to level of the fascia which was then grasped and incised sharply. We entered the peritoneum and then placed stay sutures of 0 Vicryl on the fascial edges. A 12 mm Miller port was then placed into the umbilicus and the balloon was inflated. The abdomen was insufflated to 15 mmHg a 5 mm camera was inserted. A TAP block was performed using mixed 1% lidocaine with epinephrine and 0.5% bupivacaine with epinephrine. We then proceeded to place a 5 mm port under direct visualization in the suprapubic midline and an additional 5mm port in the left lower quadrant. The patient was then positioned in Trendelenburg with right side elevated and we proceeded to mobilize the appendix. The appendix was inflamed and edematous with surrounding adherent omentum. The appendix was then grasped and with blunt dissection was brought into the surgical field. The mesoappendix dissected from the appendix. The appendix was then taken with a tissue staple load. The mesoappendix was then taken with the vascular staple load. The specimen was in place in the Endo Catch bag. We then inspected and removed any blood in the area. There was no active bleeding at the end of this case. The abdomen was then desufflated and the umbilical fascia closed with 0 Vicryl sutures and the stay sutures were tied, effectively closing the umbilical port site. The skin was then reapproximated at all port sites using a 4-0 Monocryl subcutaneous stitch and covered with Dermabond surgical glue. The patient tolerated the procedure. She was extubated and transported to the PACU in stable condition. All sponge and needle counts were correct. Kira Reyez MD General Surgery
[2021-03-12] MEDS ORDERED: fentaNYL 100 MCG/2 ML SDV IVPUSH PRN (10:04)
--- NOTE | 2021-03-12 10:05 | PCM.POSTAN ---
POST ANESTHESIA ASSESSMENT - MENTAL STATUS Mental Status: Alert, Oriented - VITAL SIGNS Vital Signs: Last Vital Signs Temp 36.0 C L 03/12/21 03:43 Pulse 81 03/12/21 03:43 Resp 16 03/12/21 03:43 BP 139/100 H 03/12/21 03:43 Pulse Ox 98 03/12/21 03:43 - RESPIRATORY Respiratory Status: Respiratory Rate WNL, Airway Patent, O2 Saturation Stable - CARDIOVASCULAR CV Status: Pulse Rate WNL, Blood Pressure Stable - GASTROINTESTINAL GI Status: No Symptoms - PAIN Pain Score: 0 - POST OP HYDRATION Hydration Status: Adequate & Stable - OBSERVATIONS Free Text/Narrative:: no anesthesia complications noted
[2021-03-12] MEDS ORDERED: Lactated Ringers 1,000 ML IV SCH (10:30)
--- NOTE | 2021-03-12 11:03 | CT ---
CT abdomen and pelvis Technique: Multiple axial sections were obtained from above the dome of the diaphragm inferiorly to the pubic symphysis. Delayed images were also obtained through the abdomen and pelvis. Reconstructed coronal and sagittal images were obtained. Comparison: No prior abdominal imaging is available. Findings: Contrast is noted within the distal esophagus compatible with gastroesophageal reflux. Very minimal atelectasis is noted within both posterior lungs. No abnormality is appreciated within the liver. Spleen size is normal. Adrenal glands show no nodule. Kidneys show symmetric contrast enhancement with no hydronephrosis or mass. Delayed images shows contrast within the ureters and within the bladder. Pancreas shows no discrete abnormality. Gallstones are seen within the gallbladder. Abdominal aorta shows no aneurysm. No pelvic mass or adenopathy is appreciated. Mild inflammatory change is seen around the distal tip of the cecum. Appendix is mildly enlarged with slight inflammatory change. Impression: 1. Findings as described above compatible with acute appendicitis. 2. Mild gastroesophageal reflux. 3. Cholelithiasis. Diagnostic code #5 I agree with preliminary report from [facility], finalized on 03/12/21, 8:22 AM CDT, code 1
--- NOTE | 2021-03-12 11:07 | PCM48HPAN ---
Post Anesthesia Note - EVALUATION WITHIN 48HRS OF ANESTHETIC Vital Signs in Normal Range: Yes Patient Participated in Evaluation: Yes Respiratory Function Stable: Yes Airway Patent: Yes Cardiovascular Function Stable: Yes Hydration Status Stable: Yes Pain Control Satisfactory: Yes Nausea and Vomiting Control Satisfactory: Yes Mental Status Recovered: Yes Vital Signs: Last Vital Signs Temp 98.1 C H 03/12/21 11:00 Pulse 81 03/12/21 03:43 Resp 13 03/12/21 11:00 BP 136/97 H 03/12/21 11:00 Pulse Ox 90 L 03/12/21 11:00 - COMMENTS/OBSERVATIONS Free Text/Narrative:: no anesthesia complications noted
== END 2021-03-12 12:03 | disposition home or self-care (01) ==
LOC: JD.ED 03:37 → JD.SDS 08:09
PROVIDERS: ATTEND Surgery
DX: K35.32 Acute appendicitis with perforation, localized peritonitis, and gangrene, without abscess (principal); Z88.6 Allergy status to analgesic agent; F17.210 Nicotine dependence, cigarettes, uncomplicated; Z86.16 Personal history of COVID-19; Z01.812 Encounter for preprocedural laboratory examination; Z20.822 Contact with and (suspected) exposure to COVID-19; D72.829 Elevated white blood cell count, unspecified
CPT/HCPCS: 36415; 44970; 74177; 80053; 81001; 81025; 83735; 85007; 85027; 87635; 96374; 96375; 96376; 99285; J1100; J1170; J1335; J1885; J2250; J2405; J2704; J2710; J3010; J3490; J7030; J7120; Q9967; 00840; 99140; U0002